=== PATIENT | male | born 1975 | race Caucasian/White ===

== ENCOUNTER 2017-09-08 18:42 | Emergency (ER) | payer MEDICAID ==
[~2017-09-08] VITALS: Ht 188 cm; Wt 102.2 kg
[~2017-09-08 18:42] MED LIST: CLIN300C85 PO
[2017-09-08 18:47] VITALS: BP 146/89
[2017-09-08] MEDS ORDERED: LIDOcaine 1.5% w/epinephrine 1:200,000 5ml ampul IJ ONE (20:00)
[2017-09-08] MEDS ORDERED: CEPH-572 PO (20:00)
[2017-09-08] MEDS ORDERED: SULF1TAB49 PO (20:00)
[2017-09-08] MEDS ORDERED: HYDROcodone/acetaminophen 10/325mg tab PO ONE (20:00)
== END 2017-09-08 20:56 | disposition home or self-care (01) ==
LOC: ER 18:43
DX: L02.411 Cutaneous abscess of right axilla (principal); Z90.49 Acquired absence of other specified parts of digestive tract; Z79.899 Other long term (current) drug therapy
CPT/HCPCS: 10061; 99284; A6266; A6449; J3490; 10060; 99283

== ENCOUNTER 2021-03-22 16:12 | Inpatient (IN) | payer MEDICAID ==
[~2021-03-22] VITALS: Ht 190.5 cm; Wt 98.0 kg
[~2021-03-22 16:12] MED LIST changes: +CLIN-97 PO; -CLIN300C85 PO
--- NOTE | 2021-03-22 21:01 | NUR ---
PT ROOMED IN BED 6. MD AT BEDSIDE
[2021-03-22] MEDS ORDERED: normal saline 1000ML IV soln IV ONE (21:05)
[2021-03-22] MEDS ORDERED: vancomycin/NS 1 GM ADD-VANTAGE 250 ML IV ONE (21:05)
--- NOTE | 2021-03-22 21:05 | NUR ---
XRAY AT BEDSIDE
[2021-03-22 21:29] LABS: BASOPHILS % (AUTO) 0.2 % (0-1); EOSINOPHILS # (AUTO) 0.2 X10'3 (0-0.9); EOSINOPHILS % (AUTO) 1.6 % (0-6); HEMATOCRIT 34.1 % (42.0-52.0); HEMOGLOBIN 11.8 g/dl (14.0-17.9); LYMPHOCYTES # (AUTO) 1.7 X10'3 (1.1-4.8); LYMPHOCYTES % (AUTO) 16.7 % (21-51); MEAN CORPUSCULAR HEMOGLOBIN 30.2 PG (27.0-31.0); MEAN CORPUSCULAR HGB CONC 34.5 g/dL (33.0-36.5); MEAN CORPUSCULAR VOLUME 87.7 FL (78-98); MEAN PLATELET VOLUME 7.5 FL (7.4-10.4); MONOCYTES # (AUTO) 0.8 X10'3 (0-0.9); MONOCYTES % (AUTO) 8.1 % (2-12); NEUTROPHILS # (AUTO) 7.3 X10'3 (1.8-7.7); NEUTROPHILS % (AUTO) 73.4 % (42-75); PLATELET COUNT 344 X10'3 (140-440); RED BLOOD COUNT 3.89 X10'6 (4.70-6.10); RED CELL DISTRIBUTION WIDTH 14.5 % (11.5-14.5)
[2021-03-22 21:39] LABS: ALANINE AMINOTRANSFERASE 31 U/L (12-78); ALBUMIN 2.8 G/DL (3.4-5.0); ALBUMIN/GLOBULIN RATIO 0.6 (1.1-1.5); ALKALINE PHOSPHATASE 83 IU/L (46-116); ANION GAP 6 (8-16); ASPARTATE AMINO TRANSFERASE 18 U/L (10-37); BILIRUBIN,TOTAL 0.2 MG/DL (0.1-1.0); BLOOD UREA NITROGEN 10 MG/DL (7-18); BUN/CREATININE RATIO 11.4 (5.4-32.0); CALCIUM 8.6 MG/DL (8.5-10.1); CHLORIDE 99 MMOL/L (99-107); CREATININE 0.88 MG/DL (0.60-1.10); GLUCOSE 184 MG/DL (70-104); MAGNESIUM 2.5 MG/DL (1.5-2.4); POTASSIUM 3.1 MMOL/L (3.5-5.1); SODIUM 136 MMOL/L (135-145); TOTAL CARBON DIOXIDE 31.3 MMOL/L (24-32); TOTAL PROTEIN 7.4 G/DL (6.4-8.2); eGFR > 90 ML/MIN
[2021-03-22] MEDS ORDERED: magnesium 4gm in 100ml NS 100 ML IV PRN (22:10)
[2021-03-22] MEDS ORDERED: potassium Cl 20 mEq SR tablet PO PRN (22:10)
[2021-03-22] MEDS ORDERED: magnesium 2GM in 50ml NS 50 ML IV PRN (22:10)
[2021-03-22] MEDS ORDERED: normal saline 1000ml 1,000 ML IV SCH (22:10)
[2021-03-22] MEDS ORDERED: ondansetron/PF 4mg/2ml inj IV PRN (22:10)
[2021-03-22] MEDS ORDERED: mag hydrox/Alum hydrox/simeth 30ml oral suspension PO PRN (22:10)
[2021-03-22] MEDS ORDERED: acetaminophen 325mg tablet PO PRN ×2 (22:10)
[2021-03-22] MEDS ORDERED: magnesium Cl slow-release 64mg tablet PO PRN (22:10)
[2021-03-22] MEDS ORDERED: HYDROcodone/acetaminophen 10/325mg tab PO PRN (22:10)
[2021-03-22] MEDS ORDERED: HYDROcodone/acetaminophen 5mg/325mg tablet PO PRN (22:10)
[2021-03-22] MEDS ORDERED: potassium CL 10mEq/100ml bag 100 ML IV PRN (22:10)
--- NOTE | 2021-03-22 22:21 | NUR ---
IV STARTED AND FLUIDS RUNNING
[2021-03-22] MEDS ORDERED: NO HOME MEDS (22:32)
[2021-03-23 00:41] LABS: ALBUMIN 2.3 G/DL (3.4-5.0); ANION GAP 8 (8-16); BLOOD UREA NITROGEN 8 MG/DL (7-18); BUN/CREATININE RATIO 11.1 (5.4-32.0); CHLORIDE 104 MMOL/L (99-107); CREATININE 0.72 MG/DL (0.60-1.10); GLUCOSE 99 MG/DL (70-104); MAGNESIUM 2.3 MG/DL (1.5-2.4); POTASSIUM 3.1 MMOL/L (3.5-5.1); SODIUM 140 MMOL/L (135-145); TOTAL CARBON DIOXIDE 28.4 MMOL/L (24-32); eGFR > 90 ML/MIN
[2021-03-23 00:42] LABS: BASOPHILS % (AUTO) 0.3 % (0-1); EOSINOPHILS # (AUTO) 0.2 X10'3 (0-0.9); HEMOGLOBIN 11.3 g/dl (14.0-17.9); LYMPHOCYTES # (AUTO) 1.6 X10'3 (1.1-4.8); LYMPHOCYTES % (AUTO) 19.2 % (21-51); MEAN CORPUSCULAR HEMOGLOBIN 29.8 PG (27.0-31.0); MEAN CORPUSCULAR HGB CONC 34.2 g/dL (33.0-36.5); MEAN CORPUSCULAR VOLUME 86.9 FL (78-98); MEAN PLATELET VOLUME 7.4 FL (7.4-10.4); MONOCYTES # (AUTO) 0.8 X10'3 (0-0.9); MONOCYTES % (AUTO) 9.4 % (2-12); NEUTROPHILS # (AUTO) 5.8 X10'3 (1.8-7.7); NEUTROPHILS % (AUTO) 69.1 % (42-75); PLATELET COUNT 305 X10'3 (140-440); RED CELL DISTRIBUTION WIDTH 14.4 % (11.5-14.5); WHITE BLOOD COUNT 8.4 X10'3 (4.5-11.0)
[2021-03-23] MEDS: potassium Cl 20 mEq SR tablet PO PRN ×2 (01:19→19:47)
[2021-03-23] MEDS: cefepime 1GM in D5W 50mL 50 ML IV SCH ×3 (01:31→15:27)
[2021-03-23 02:00] VITALS: BP 117/80
--- NOTE | 2021-03-23 02:00 | NUR ---
received report from DANISHA Garcia from emergency room. pt arrived at 0100 via wheelchair. ambulated from chair to bed. pt settled in and now sleeping.
[2021-03-23] MEDS: vancomycin/NS 1 GM ADD-VANTAGE 250 ML IV SCH ×3 (05:45→22:04)
--- NOTE | 2021-03-23 06:25 | NUR ---
I agree with DANISHA Alvarezreligion teacher, charting, and report given to DANISHA Celestin
--- NOTE | 2021-03-23 06:26 | NUR ---
Problems reprioritized. Patient report given, questions answered & plan of care reviewed with DANISHA Celestin.
[2021-03-23 07:00] VITALS: BP 117/67
[2021-03-23] MEDS: docusate sod 100mg capsule PO SCH ×2 (08:00→19:47)
[2021-03-23] MEDS: K and/or MAG REPLACEMENT MC SCH ×2 (08:46→19:48)
[2021-03-23 11:41] VITALS: BP 129/76
--- NOTE | 2021-03-23 18:56 | NUR ---
Problems reprioritized. Patient report given, questions answered & plan of care reviewed with NASH RAMAN.
[2021-03-23] MEDS: lactobacillus rhamnosus 10,000 MMU CELLS/CAPSULE PO SCH (19:47)
[2021-03-23 20:00] VITALS: BP 117/73
[2021-03-23] MEDS ORDERED: VANCOMYCIN LEVEL IV ONE (21:30)
[2021-03-24] VITALS: BP 102/60
[2021-03-24] MEDS: vancomycin/NS 1 GM ADD-VANTAGE 250 ML IV SCH (05:52)
[2021-03-24 06:29] LABS: BASOPHILS % (AUTO) 0.4 % (0-1); EOSINOPHILS # (AUTO) 0.3 X10'3 (0-0.9); EOSINOPHILS % (AUTO) 3.4 % (0-6); HEMATOCRIT 34.3 % (42.0-52.0); HEMOGLOBIN 11.8 g/dl (14.0-17.9); LYMPHOCYTES # (AUTO) 1.7 X10'3 (1.1-4.8); LYMPHOCYTES % (AUTO) 20.8 % (21-51); MEAN CORPUSCULAR HGB CONC 34.3 g/dL (33.0-36.5); MEAN CORPUSCULAR VOLUME 87.5 FL (78-98); MEAN PLATELET VOLUME 7.3 FL (7.4-10.4); MONOCYTES # (AUTO) 0.6 X10'3 (0-0.9); MONOCYTES % (AUTO) 7.2 % (2-12); NEUTROPHILS # (AUTO) 5.6 X10'3 (1.8-7.7); NEUTROPHILS % (AUTO) 68.2 % (42-75); PLATELET COUNT 364 X10'3 (140-440); RED BLOOD COUNT 3.92 X10'6 (4.70-6.10); RED CELL DISTRIBUTION WIDTH 14.8 % (11.5-14.5); WHITE BLOOD COUNT 8.1 X10'3 (4.5-11.0)
[2021-03-24 06:43] LABS: ALBUMIN 2.3 G/DL (3.4-5.0); ANION GAP 8 (8-16); BLOOD UREA NITROGEN 9 MG/DL (7-18); CALCIUM 8.7 MG/DL (8.5-10.1); CHLORIDE 106 MMOL/L (99-107); CREATININE 0.75 MG/DL (0.60-1.10); GLUCOSE 101 MG/DL (70-104); MAGNESIUM 2.1 MG/DL (1.5-2.4); SODIUM 141 MMOL/L (135-145); TOTAL CARBON DIOXIDE 27.5 MMOL/L (24-32); eGFR > 90 ML/MIN
--- NOTE | 2021-03-24 06:43 | NUR ---
Report given , questions answered and plan of care reviewed with Sabrina RAMAN .
--- NOTE | 2021-03-24 06:55 | NUR ---
Patient in room [facility]. I have received report from NASH RAMAN and had the opportunity to ask questions and assume patient care.
[2021-03-24 07:33] VITALS: BP 121/75
[2021-03-24] MEDS: K and/or MAG REPLACEMENT MC SCH (08:00)
[2021-03-24] MEDS: cefepime 1GM in D5W 50mL 50 ML IV SCH ×2 (08:28)
[2021-03-24] MEDS: lactobacillus rhamnosus 10,000 MMU CELLS/CAPSULE PO SCH (08:28)
[2021-03-24] MEDS: docusate sod 100mg capsule PO SCH (08:28)
[2021-03-24 11:00] VITALS: BP 120/75
[2021-03-24] MEDS ORDERED: SULF1TAB49 PO (12:11)
[2021-03-24] MEDS ORDERED: VANCOmycin 1250MG/NS 250ml Bag 250 ML IV SCH (14:00)
--- NOTE | 2021-03-24 16:30 | NUR ---
PT DISCHARGED IN STABLE CONDITION. IV DC [facility] INTACT. FOLLOW UP INSTRUCTIONS GIVEN. PT AWARE HE IS TO FOLLOW UP WITH [facility] AND OUTPATIENT WOUND CARE. Addendum: 03/24/21 at 1814 by Zeinab Franklin RN Amended: Links added.
[2021-03-25] MEDS ORDERED: VANCOMYCIN LEVEL IV ONE (13:30)
== END 2021-03-24 16:30 | disposition home or self-care (01) | DRG 383 ==
LOC: ER 16:13 → ED HOLD 22:12 → SUR 3N 03-23 01:00
PROVIDERS: ADMIT Internal Medicine; ATTEND Family Medicine
DX: L03.115 Cellulitis of right lower limb (principal); D64.9 Anemia, unspecified; E87.6 Hypokalemia; F17.220 Nicotine dependence, chewing tobacco, uncomplicated; Z59.00 Homelessness unspecified; Z90.49 Acquired absence of other specified parts of digestive tract; Z79.899 Other long term (current) drug therapy
CPT/HCPCS: 36415; 71045; 80048; 80053; 80202; 83605; 83735; 84132; 84145; 85025; 87040; 87081; 93970; 99285; G0378; J0692; J3370; J7030

== ENCOUNTER 2021-06-26 06:28 | Emergency (ER) | payer MEDICAID ==
[~2021-06-26] VITALS: Ht 190.5 cm; Wt 109.1 kg
[2021-06-26 06:46] VITALS: BP 159/90
--- NOTE | 2021-06-26 07:23 | NUR ---
pt in bed 13, call light within reach.
[2021-06-26] MEDS ORDERED: NO HOME MEDS (07:34)
[2021-06-26] MEDS ORDERED: CEPH-585 PO (07:51)
[2021-06-26] MEDS ORDERED: HYDR-3972 PO (07:51)
[2021-06-26] MEDS ORDERED: HYDROcodone/acetaminophen 10/325mg tab PO ONE (07:55)
[2021-06-26] MEDS ORDERED: cephalexin 500mg capsule PO ONE (07:55)
== END 2021-06-26 08:40 | disposition home or self-care (01) ==
LOC: ER 06:29
DX: L60.0 Ingrowing nail (principal); L08.9 Local infection of the skin and subcutaneous tissue, unspecified; Z90.49 Acquired absence of other specified parts of digestive tract; Z79.2 Long term (current) use of antibiotics; Z79.899 Other long term (current) drug therapy
CPT/HCPCS: 99283

== ENCOUNTER 2023-06-03 00:55 | Emergency (ER) | payer MEDICAID ==
[~2023-06-03] VITALS: Ht 190.5 cm; Wt 119.9 kg
[~2023-06-03 00:55] MED LIST changes: -CLIN-97 PO; +NO HOME MEDS
[2023-06-03] MEDS ORDERED: SULF1TAB49 PO (01:11)
[2023-06-03] MEDS ORDERED: CEPH-585 PO (01:11)
[2023-06-03 01:28] VITALS: BP 124/86; PULSE 94; RESP 16; TEMP 98; O2SAT 95
== END 2023-06-03 01:27 | disposition home or self-care (01) ==
LOC: ER 00:56
DX: L03.115 Cellulitis of right lower limb (principal); F17.200 Nicotine dependence, unspecified, uncomplicated; Z79.2 Long term (current) use of antibiotics
CPT/HCPCS: 99283